=== PATIENT | female | born 1980 | race Two or more races ===

== ENCOUNTER 2017-06-17 09:13 | Emergency (ER) | payer MEDICAID ==
[~2017-06-17] VITALS: Ht 157.5 cm; Wt 57.2 kg
[2017-06-17 11:02] VITALS: BP 112/71
== END 2017-06-17 11:02 | disposition home or self-care (01) ==
LOC: ED 09:13
DX: M54.2 Cervicalgia (principal); M54.6 Pain in thoracic spine
CPT/HCPCS: J1885

== ENCOUNTER 2017-07-15 17:49 | Emergency (ER) | payer MEDICAID ==
[~2017-07-15] VITALS: Ht 152.4 cm; Wt 57.6 kg
[2017-07-15 20:32] VITALS: BP 118/71
== END 2017-07-15 20:32 | disposition home or self-care (01) ==
LOC: ED 17:49
DX: H66.91 Otitis media, unspecified, right ear (principal); J20.9 Acute bronchitis, unspecified; Z88.0 Allergy status to penicillin
CPT/HCPCS: J1885; Q0162

== ENCOUNTER 2017-07-19 14:13 | Emergency (ER) | payer MEDICAID ==
[2017-07-19 16:10] VITALS: BP 102/61
== END 2017-07-19 16:10 | disposition home or self-care (01) ==
LOC: ED 14:13
DX: J40 Bronchitis, not specified as acute or chronic (principal); H92.01 Otalgia, right ear; Z88.0 Allergy status to penicillin
CPT/HCPCS: J7613

== ENCOUNTER 2019-08-22 14:09 | Emergency (ER) | payer MEDICAID ==
[~2019-08-22] VITALS: Ht 152.4 cm; Wt 60.8 kg
[2019-08-22 14:34] VITALS: BP 108/66; Ht 152.4 cm; Wt 60.8 kg
== END 2019-08-22 16:45 | disposition left against medical advice (07) ==
LOC: ED 14:09
DX: M25.532 Pain in left wrist (principal); Z13.89 Encounter for screening for other disorder

== ENCOUNTER 2019-08-24 07:27 | Emergency (ER) | payer MEDICAID ==
[~2019-08-24] VITALS: Ht 152.4 cm; Wt 61.2 kg
[2019-08-24 07:33] VITALS: Ht 152.4 cm; Wt 61.2 kg
[2019-08-24 09:43] VITALS: BP 122/58
== END 2019-08-24 09:43 | disposition home or self-care (01) ==
LOC: ED 07:27
DX: M67.431 Ganglion, right wrist (principal); Z88.0 Allergy status to penicillin; Z87.442 Personal history of urinary calculi
CPT/HCPCS: Q0092

== ENCOUNTER 2019-09-13 10:05 | Emergency (ER) | payer MEDICAID ==
[~2019-09-13] VITALS: Ht 160 cm; Wt 59.9 kg
[2019-09-13 10:13] VITALS: BP 121/70; Ht 160 cm; Wt 59.9 kg
== END 2019-09-13 11:21 | disposition home or self-care (01) ==
LOC: ED 10:05
DX: J02.9 Acute pharyngitis, unspecified (principal); J40 Bronchitis, not specified as acute or chronic; Z88.0 Allergy status to penicillin; Z87.442 Personal history of urinary calculi